=== PATIENT | female | born 1965 | race Caucasian/White ===

== ENCOUNTER → 2016-08-25 | Outpatient (CLI) | payer OTHER, MEDICARE | END | disposition home or self-care (01) | LOC: RAD.S 11:06 | DX: Z12.31 Encounter for screening mammogram for malignant neoplasm of breast (principal) ==

== ENCOUNTER → 2016-11-06 | Outpatient (CLI) | payer OTHER | END | disposition home or self-care (01) | LOC: PTH.S 16:15 | DX: L89.314 Pressure ulcer of right buttock, stage 4 (principal); Z79.899 Other long term (current) drug therapy; Z90.5 Acquired absence of kidney ==

== ENCOUNTER → 2016-11-07 | Outpatient (CLI) | payer OTHER | END | disposition home or self-care (01) | LOC: RAD.S 07:45 → PTH.S 07:57 → RAD.S 08:30 | DX: L89.314 Pressure ulcer of right buttock, stage 4 (principal); S31.809A Unspecified open wound of unspecified buttock, initial encounter; L02.211 Cutaneous abscess of abdominal wall ==